=== PATIENT | female | born 1970 | race American Indian/Alaskan Native ===

== ENCOUNTER 2017-09-24 11:17 | Emergency (ER) | payer MEDICAID, OTHER ==
[2017-09-24 11:46] VITALS: BP 154/74
[2017-09-24] MEDS ORDERED: cefTRIAXone 500 MG Vial IM ONE (12:21)
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
[2017-09-24] MEDS ORDERED: Amoxicillin/Clavulanate K 875-125 MG Tab PO ONE (13:01)
[2017-09-24] MEDS ORDERED: Bacitracin Oint 1 GM U/D Packet TOP ONE (13:04)
[2017-09-24] MEDS ORDERED: Diphtheria,Pertussis(Acell),Tetanus Vaccine 0.5 ML SDV IM ONE (13:17)
== END 2017-09-24 13:20 | disposition home or self-care (01) ==
LOC: DL.ED 11:17
DX: S61.251A Open bite of left index finger without damage to nail, initial encounter (principal); F17.210 Nicotine dependence, cigarettes, uncomplicated; Z88.5 Allergy status to narcotic agent; W50.3XXA Accidental bite by another person, initial encounter
CPT/HCPCS: 36415; 73140; 85025; 90471; 96372; 99284; A9270; J0696

== ENCOUNTER 2019-11-04 15:16 | Emergency (ER) | payer OTHER ==
[2019-11-04 15:54] VITALS: BP 113/81; PULSE 113
[2019-11-04] MEDS ORDERED: Sodium Chloride 0.9% 10 ML Syringe FLUSH PRN (16:05)
[2019-11-04] MEDS ORDERED: Iopamidol 612 MG/ML 100 ML Bottle IVPUSH ONE (16:20)
[2019-11-04 16:49] LABS: PTT,PARTIAL THROMBOPLSTIN TIME 34.2 SEC (22.0-34.0)
--- NOTE | 2019-11-04 16:56 | CT ---
EXAMINATION: Abdomen Pelvis w Cont SEX: Female AGE: 48 years Clinical history: 48-year-old hypertensive female smoker with JAUNDICE and RUQ tenderness. Scan technique: Volume acquisition of data from the abdomen and pelvis obtained without oral contrast but during intravenous infusion 100 cc nonionic Isovue contrast (2.5 cc/s via injector) while patient was lying supine on the Siemens multi slice scanner [place], [place]. All data archived in the PACS system for storage, reformatting axial/sagittal/coronal planes and study. Interpretation: Abnormal. 1. Homogeneously dense fatty liver (no intrahepatic mass or abnormal dilatation of the biliary ducts) and extensive ASCITES (peritoneal fluid). Extensive subcutaneous edema (anasarca). 2. Gallbladder is distended and inhomogeneously dense suggesting multiple noncalcified gallstones. Ultrasound recommended. No abnormal gallbladder wall thickening. 3. No abdominal or pelvic mass lesion (midline uterus unremarkable). No mesenteric or retroperitoneal lymphadenopathy. No sign of mechanical bowel obstruction. 4. Stomach, spleen, pancreas, adrenal glands and kidneys unremarkable. No sign of renal cortical mass lesion, nephrolithiasis or obstructive uropathy. Symmetrically distended normal appearing urinary bladder. 6. Normal caliber aortoiliac vessels. Lumbar spine unremarkable. Lung bases clear. CONCLUSION: Diseased liver and ascites. Probable cholelithiasis (ultrasound suggested) without ductal dilatation. No sign of intraperitoneal malignancy.
[2019-11-04] MEDS ORDERED: Pantoprazole 40 MG Vial IVPUSH ONE (17:03)
--- NOTE | 2019-11-04 17:41 | EDM.PDOC ---
Scribed by Elo Cooper 11/04/19 0530 for Michel Renner MD ED HPI GENERAL MEDICAL PROBLEM - General Chief Complaint: General Stated Complaint: FELL-HURT RIBS Time Seen by Provider: 11/04/19 15:35 Source of Information: Reports: Patient, RN, RN Notes Reviewed History Limitations: Reports: No Limitations - History of Present Illness INITIAL COMMENTS - FREE TEXT/NARRATIVE: Patient presents to ER from [facility] for evaluation of anemia, right upper quadrant abdominal and right lower chest pain. Patient has history of chronic alcohol abuse, last drank this morning. She fell 6 days ago with bruising to the right thigh. Clinic provider was concerned about anemia and possible liver injury from the fall. Patient denies nausea, vomiting, hematemesis or coffee ground emesis. She denies bloody stool but is unsure if her stool has been dark or black. Denies fever, chills, cough, shortness of breath or any recent travel. Denies any known exposure or suspected COVID-19 cases. - Related Data Allergies Allergy/AdvReac Type Severity Reaction Status Date / Time ibuprofen Allergy Facial Verified 11/04/19 15:28 Swelling Past Medical History - Past Health History Medical/Surgical History: Denies Medical/Surgical History Social & Family History - Family History Family Medical History: Noncontributory - Tobacco Use Smoking Status *Q: Current Every Day Smoker Years of Tobacco use: 25 Packs/Tins Daily: 0.5 Used Tobacco, but Quit: No Second Hand Smoke Exposure: Yes - Caffeine Use Caffeine Use: Reports: None - Alcohol Use Days Per Week of Alcohol Use: 3 Number of Drinks Per Day: 6 Total Drinks Per Week: 18 - Recreational Drug Use Recreational Drug Use: Yes Recreational Drug Type: Reports: Marijuana/Hashish Recreational Drug Use Frequency: Socially ED ROS GENERAL - Review of Systems Review Of Systems: Comprehensive ROS is negative, except as noted in HPI. ED EXAM, GENERAL - Physical Exam Exam: See Below Exam Limited By: No Limitations General Appearance: Alert, No Apparent Distress, Obese, Other (Chronically ill appearing) Eye Exam: Bilateral Eye: EOMI, PERRL, Other (Scleral icterus) Ears: Normal External Exam Nose: Normal Inspection, No Blood Throat/Mouth: Normal Inspection, Normal Lips, Normal Voice, No Airway Compromise Head: Atraumatic, Normocephalic Neck: Normal Inspection, Supple, Non-Tender, Full Range of Motion Respiratory/Chest: No Respiratory Distress, Lungs Clear, Normal Breath Sounds, No Accessory Muscle Use, Other (Right anterior lower rib/chest wall tenderness) Cardiovascular: Normal Peripheral Pulses, Regular Rate, Rhythm, Tachycardia, Systolic Murmur GI/Abdominal: Normal Bowel Sounds, Soft, No Distention, Tender (RUQ), Hepatomegaly. No: Guarding, Rigid, Rebound (Female) Exam: Deferred Rectal (Female) Exam: Heme + Stool Back Exam: Normal Inspection Extremities: Normal Range of Motion, Non-Tender, Other (B/L lower extremity edema to knees). No: Jim's Sign, Increased Warmth Neurological: Alert, Oriented, CN II-XII Intact, Normal Cognition, No Motor/ Sensory Deficits Psychiatric: Normal Mood, Flat Affect Skin Exam: Warm, Dry, Intact, Ecchymosis (B/L lower extremities, with large resolving contusion to right hip/thigh) Course - Vital Signs Last Recorded V/S: Last Vital Signs Temp 97.9 F 11/04/19 15:53 Pulse 113 H 11/04/19 15:53 Resp 20 11/04/19 15:53 BP 113/81 11/04/19 15:53 Pulse Ox 100 11/04/19 15:53 - Orders/Labs/Meds Orders: Active Orders 24 hr Category Date Time Status Peripheral IV Care [RC] . DIRECTED Care 11/04/19 16:05 Active Sodium Chloride 0.9% [Saline Flush] Med 11/04/19 16:05 Active 10 ml FLUSH ASDIRECTED PRN Peripheral IV Insertion Adult [OM.PC] Stat Oth 11/04/19 16:04 Ordered Medication Orders Sodium Chloride (Saline Flush) 10 ml FLUSH ASDIRECTED PRN PRN Reason: Keep Vein Open Last Admin: 11/04/19 17:12 Dose: 10 ml Labs: Laboratory Tests 11/04/19 11/04/19 11/04/19 Range/Units 16:16 16:16 16:16 PT 14.8 H (9.0-12.0) SEC INR 1.6 H (0.9-1.2) APTT 34.2 H (22.0-34.0) SEC Ammonia 48 H (11-32) umol/L B-Natriuretic Peptide 243 H (0-100) pg/ml Amylase 38 (25-115) U/L Lipase 253 (73-393) U/L Ethyl Alcohol 156 (0) mg/dL Hemoccult stool: POSITIVE LABS FROM [facility]RIAS on 11/04/19. Glucose 110. EST GFR 60. Urea nitrogen 3.8. Creatinine 0.60. Sodium 134.0. Potassium 3.2. Chloride 97.0. C02: 22.8. Calcium 7.8. Protein total 7.7. Albumin 2.3. Total bilirubin 6.70. Direct bilirubin 3.20. Alkaline phosphatase 147. SGOT 102. SGPT 21. Cholesterol 122 Triglyceride 100.0. DHDL 29 LDL 65. WBC: 10.8. RBC: 2.00. Hemoglobin: 7.7. Hematocrit 22.2 MCV 111.2. MCH 38.4. MCHC 34.6. RDW 16.0. Platelet count 86.0. MPV 8.3. ME%, auto 73.2. LY%, auto 16.1. MO%, auto 7.4. EOS% auto 2.4. BASO%, auto 0.9. NE# 7.90. LY# 1.70. MO# 0.80. EO# 0.30. BA# 0.10. [facility] FREE T4 68.0. [facility] TSH: 1.34. [facility] Vitamin B12 greater than 1515. Meds: Medications Generic Name Dose Route Start Last Admin Trade Name Freq PRN Reason Stop Dose Admin Sodium Chloride 10 ml 11/04/19 16:05 11/04/19 17:12 Saline Flush FLUSH 10 ml ASDIRECTED PRN Administration Keep Vein Open Discontinued Medications Generic Name Dose Route Start Last Admin Trade Name Freq PRN Reason Stop Dose Admin Iopamidol 100 ml 11/04/19 16:20 11/04/19 16:42 Isovue-300 (61%) IVPUSH 11/04/19 16:21 100 ml ONETIME ONE Administration Pantoprazole Sodium 80 mg 11/04/19 17:03 11/04/19 17:12 Protonix Iv IVPUSH 11/04/19 17:04 80 mg .BOLUS ONE Administration - Radiology Interpretation Free Text/Narrative:: CT abdomen and pelvis: Diseased liver and ascites. Probable cholelithiasis ( ultrasound suggested) without ductal dilatation. No sign of intraperitoneal malignancy. See rad report. Departure - Departure Time of Disposition: 17:25 Disposition: DC/Tfer to [facility] 02 Reason for Transfer *Q: Other Condition: Undetermined Clinical Impression: Ascites due to alcoholic cirrhosis, Thrombocytopenia, Heme positive stool Referrals: PCP,Unobtain [Primary Care Provider] - Forms: ED Department Discharge, Interfacility Transfer EMTALA Sepsis Event Note - Focused Exam Vital Signs: Vital Signs Temp Pulse Resp BP Pulse Ox 11/04/19 15:53 97.9 F 113 H 20 113/81 100 Date Exam was Performed: 11/04/19 Time Exam was Performed: 17:40 - My Orders Last 24 Hours: My Active Orders 11/04/19 16:04 Peripheral IV Insertion Adult [OM.PC] Stat 11/04/19 16:05 Peripheral IV Care [RC] . DIRECTED Sodium Chloride 0.9% [Saline Flush] 10 ml FLUSH ASDIRECTED PRN - Assessment/Plan Last 24 Hours: My Active Orders 11/04/19 16:04 Peripheral IV Insertion Adult [OM.PC] Stat 11/04/19 16:05 Peripheral IV Care [RC] . DIRECTED Sodium Chloride 0.9% [Saline Flush] 10 ml FLUSH ASDIRECTED PRN I have read and agree with the documentation that has been completed regarding this visit. By signing this record, I attest that the documentation was completed in my physical presence and is an accurate record of the encounter.
== END 2019-11-04 17:53 ==
LOC: DL.ED 15:16
DX: K70.31 Alcoholic cirrhosis of liver with ascites (principal); D69.6 Thrombocytopenia, unspecified; K92.1 Melena; F17.210 Nicotine dependence, cigarettes, uncomplicated
CPT/HCPCS: 36415; 74177; 80307; 82140; 82150; 82272; 83690; 83880; 85610; 85730; 96374; 99285; C9113; Q9967; 99284

== ENCOUNTER 2020-02-05 17:03 | Emergency (ER) | payer MEDICAID, OTHER ==
[2020-02-05 17:14] VITALS: BP 108/45; PULSE 114
[2020-02-05] MEDS: Sodium Chloride 0.9% 10 ML Syringe FLUSH PRN (17:50)
[2020-02-05 18:24] LABS: ANION GAP 18.4 mEq/L (7-13); CHLORIDE,CL 99 mmol/L (98-107); SODIUM,NA 137 mmol/L (136-145)
[2020-02-05] MEDS: MVI, Adult with Vitamin K 10 ML, Folic Acid 1 MG, Thiamine 100 MG in Lactated Ringers 1... IV ONE ×4 (18:24)
[2020-02-05 18:26] LABS: PTT,PARTIAL THROMBOPLSTIN TIME 32.4 SEC (22.0-34.0)
[2020-02-05] MEDS: Ondansetron 4 MG/2 ML SDV IV ONE (18:26)
[2020-02-05] MEDS: Pantoprazole 40 MG Vial IVPUSH ONE (18:30)
--- NOTE | 2020-02-05 18:33 | EDM.PDOC ---
Scribed by Elo Cooper 02/05/20 [id number] for Michel Renner MD ED HPI GENERAL MEDICAL PROBLEM - General Chief Complaint: Gastrointestinal Problem Stated Complaint: HIGH BLOOD PRESSURE, OVER CHECK UP PER PT Time Seen by Provider: 02/05/20 17:21 Source of Information: Reports: Patient, RN, RN Notes Reviewed History Limitations: Reports: No Limitations - History of Present Illness INITIAL COMMENTS - FREE TEXT/NARRATIVE: Patient is a 49-year-old female who presents to ED by POV stating she has noticed black stools since last evening. Vomited red blood and clots around 0300HRS this morning. States she has cirrhosis and maybe colon CA but has not had a colonoscopy yet for this. Has had to have blood transfusions in the past. Hx of GI bleeds. States she takes 7 meds but does not know names but she does not have them with her and unable to verify due to pharmacy closed. Has not taken meds for past 2 or 3 days due to being out but states took them today. Adm it to drinking alcohol yesterday. Onset: Gradual Duration: Day(s): (2), Getting Worse, Recurring Location: Reports: Abdomen Quality: Reports: Ache Severity: Moderate Improves with: Reports: None Worsens with: Reports: None Associated Symptoms: Reports: No Other Symptoms - Related Data Allergies Allergy/AdvReac Type Severity Reaction Status Date / Time ibuprofen Allergy Facial Verified 11/04/19 15:28 Swelling Home Meds: Home Meds . [Unable to Verify Home Med List] 02/05/20 [History] Past Medical History - Past Health History Medical/Surgical History: Denies Medical/Surgical History HEENT History: Reports: Impaired Vision Cardiovascular History: Reports: Hypertension Respiratory History: Reports: None Gastrointestinal History: Reports: Cirrhosis, GI Bleed, Jaundice Genitourinary History: Reports: None Neurological History: Reports: None Psychiatric History: Reports: Addiction Endocrine/Metabolic History: Reports: Other (See Below) Other Endocrine/Metabolic History: pre diabetic Hematologic History: Reports: Anemia Dermatologic History: Reports: None - Infectious Disease History Infectious Disease History: Reports: MRSA - Past Surgical History Head Surgeries/Procedures: Reports: None Social & Family History - Family History Family Medical History: Noncontributory - Caffeine Use Caffeine Use: Reports: None - Alcohol Use Alcohol Use History: Yes Date of Last Drink: 02/04/20 Alcohol Use Frequency: Binges - Living Situation & Occupation Living situation: Reports: Occupation: Unemployed ED ROS GENERAL - Review of Systems Review Of Systems: Comprehensive ROS is negative, except as noted in HPI. ED EXAM, GI/ABD - Physical Exam Exam: See Below Exam Limited By: No Limitations General Appearance: Alert, No Apparent Distress, Active Emesis (Dry heaving.), Other (Chronically ill appearing) Eyes: Bilateral: EOMI (Scleral icterus) Nose: Normal Inspection, Normal Mucosa, No Blood Throat/Mouth: Normal Lips, Normal Oropharynx, Normal Voice, No Airway Compromise Head: Atraumatic, Normocephalic Neck: Normal Inspection, Supple, Non-Tender, Full Range of Motion Respiratory/Chest: No Respiratory Distress, Lungs Clear, Normal Breath Sounds, No Accessory Muscle Use, Chest Non-Tender Cardiovascular: Regular Rate, Rhythm, Tachycardia, Other (+1 edema to B/L knees, chronic appearing venous stasis) GI/Abdominal Exam: Normal Bowel Sounds, Soft, Non-Tender, No Distention, Pelvis Stable, Hepatomegaly. No: Guarding, Rigid, Rebound (Female) Exam: Deferred Rectal (Female) Exam: Black Stool, Heme + Stool Back Exam: Normal Inspection Extremities: Normal Range of Motion, Non-Tender, Normal Capillary Refill Neurological: Alert, Oriented, CN II-XII Intact, Normal Cognition, No Motor/Sensory Deficits Psychiatric: Normal Affect, Normal Mood Skin Exam: Warm, Dry, Intact, Jaundice. No: Ecchymosis, Petechiae EKG INTERPRETATION EKG Date: 02/05/20 Time: 18:03 Rhythm: Other (sinus tachycardia) Rate (Beats/Min): 102 [place]: Normal P-Wave: Present QRS: Normal ST-T: Other (borderline T abnormalities.) QT: Prolonged Course - Vital Signs Last Recorded V/S: Last Vital Signs Temp 96.5 F L 02/05/20 17:12 Pulse 114 H 02/05/20 17:12 Resp 18 02/05/20 17:12 BP 108/45 L 02/05/20 17:12 Pulse Ox 100 02/05/20 17:12 - Orders/Labs/Meds Orders: Active Orders 24 hr Category Date Time Status EKG 12 Lead [EKG Documentation Completion] [RC] STAT Care 02/05/20 17:57 Active Peripheral IV Care [RC] . DIRECTED Care 02/05/20 17:22 Active Hemoccult, Stool [OCCULT BLOOD DIAGNOSTIC] [OP] Stat Lab 02/05/20 17:22 Ordered INR,PT,PROTHROMBIN TIME [COAG] Stat Lab 02/05/20 17:53 Received PTT,PARTIAL THROMBOPLSTIN TIME [COAG] Stat Lab 02/05/20 17:53 Received TYPE AND SCREEN [BBK] Stat Lab 02/05/20 17:53 Received MVI, Adult with Vitamin K [Infuvite Adult] 10 ml Med 02/05/20 17:30 Active Folic Acid 1 mg Thiamine [Vitamin B-1] 100 mg Lactated Ringers [Ringers, Lactated] 1,000 ml IV ONETIME Octreotide [SandoSTATIN] 100 mcg Med 02/05/20 17:45 Active Sodium Chloride 0.9% [Normal Saline] 99 ml IV Q10H Pantoprazole [ProTONIX IV] 40 mg Med 02/05/20 17:45 Active Sodium Chloride 0.9% [Normal Saline] 100 ml IV .CONTINUOS Sodium Chloride 0.9% [Saline Flush] Med 02/05/20 17:22 Active 10 ml FLUSH ASDIRECTED PRN Blood Transfusion Reflex Orders [OM.PC] ONETIME Oth 02/05/20 18:14 Ordered Peripheral IV Insertion Adult [OM.PC] Stat Oth 02/05/20 17:21 Ordered Medication Orders Multivitamins/Minerals 10 ml/Folic Acid 1 mg/ Thiamine HCl 100 mg/ Lactated Ringer's 1,011.2 mls @ 999 mls/hr IV ONETIME ONE Stop: 02/05/20 18:30 Last Admin: 02/05/20 18:24 Dose: 999 mls/hr Documented by: EPHRAIM Pantoprazole Sodium 40 mg/ (Sodium Chloride) 100 mls @ 20 mls/hr IV .CONTINUOS JACK Octreotide Acetate 100 mcg/ (Sodium Chloride) 100 mls @ 50 mls/hr IV Q10H JACK Sodium Chloride (Saline Flush) 10 ml FLUSH ASDIRECTED PRN PRN Reason: Keep Vein Open Labs: Laboratory Tests 02/05/20 02/05/20 02/05/20 Range/Units 17:34 17:34 17:53 WBC 6.2 (5.0-10.0) 10^3/uL RBC 2.31 L (4.2-5.4) 10^6/uL Hgb 7.4 L D (12.0-16.0) g/dL Hct 22.2 L (37.0-47.0) % MCV 96.1 D (80-100) fL MCH 32.0 (27.0-34.0) pg MCHC 33.3 (33.0-35.0) g/dL Plt Count 43 L* D (150-450) 10^3/uL Neut % (Auto) 67.5 (42.2-75.2) % Lymph % (Auto) 17.0 L (20.5-50.1) % [place] % (Auto) 12.2 H (2-8) % Eos % (Auto) 0.5 L (1.0-3.0) % Baso % (Auto) 2.8 H (0.0-1.0) % Sodium (136-145) mmol/L Potassium (3.5-5.1) mmol/L Chloride (98-107) mmol/L Carbon Dioxide (21-32) mmol/L Anion Gap (7-13) mEq/L BUN (7-18) mg/dL Creatinine (0.55-1.02) mg/dL Est Cr Clr Drug Dosing mL/min Estimated GFR (MDRD) BUN/Creatinine Ratio (No establ ref range) Glucose (74-99) mg/dL Calcium (8.5-10.1) mg/dL Total Bilirubin (0.2-1.0) mg/dL AST (15-37) U/L ALT (14-59) U/L Alkaline Phosphatase (46-116) U/L Ammonia (11-32) umol/L Lactate Dehydrogenase (81-234) U/L Troponin I (0.000-0.056) ng/mL Total Protein (6.4-8.2) g/dL Albumin (3.4-5.0) g/dL Globulin Albumin/Globulin Ratio Amylase (25-115) U/L Lipase (73-393) U/L Urine Color Yellow (YELLOW) Urine Appearance Slightly cloudy (CLEAR) Urine pH 5.5 (5.0-9.0) Ur Specific [place] 1.015 (1.005-1.030) Urine Protein Negative (NEGATIVE) Urine Glucose (UA) Negative (NEGATIVE) Urine Ketones Negative (NEGATIVE) Urine Occult Blood Small H (NEGATIVE) Urine Nitrite Negative (NEGATIVE) Urine Bilirubin Negative (NEGATIVE) Urine Urobilinogen 0.2 (0.2-1.0) mg/dL Ur Leukocyte Esterase Negative (NEGATIVE) Urine RBC 5-10 H /HPF Urine WBC 0-5 (0-5/HPF) /HPF Ur Epithelial Cells Rare (NOT SEEN) /HPF Urine Bacteria Rare (0-FEW/HPF) /HPF Urine Mucus Rare (NOT SEEN) /LPF Urine Opiates Screen Negative (NEGATIVE) Ur Oxycodone Screen Negative (NEGATIVE) Urine Methadone Screen Negative (NEGATIVE) Ur Barbiturates Screen Negative (NEGATIVE) U Tricyclic Antidepress Negative (NEGATIVE) Ur Phencyclidine Scrn Negative (NEGATIVE) Ur Amphetamine Screen Negative (NEGATIVE) U Methamphetamines Scrn Negative (NEGATIVE) Urine MDMA Screen Negative (NEGATIVE) U Benzodiazepines Scrn Negative (NEGATIVE) Urine Cocaine Screen Negative (NEGATIVE) U Marijuana (THC) Screen Negative (NEGATIVE) Ethyl Alcohol (0) mg/dL 02/05/20 02/05/20 Range/Units 17:53 17:53 WBC (5.0-10.0) 10^3/uL RBC (4.2-5.4) 10^6/uL Hgb (12.0-16.0) g/dL Hct (37.0-47.0) % MCV (80-100) fL MCH (27.0-34.0) pg MCHC (33.0-35.0) g/dL Plt Count (150-450) 10^3/uL Neut % (Auto) (42.2-75.2) % Lymph % (Auto) (20.5-50.1) % [place] % (Auto) (2-8) % Eos % (Auto) (1.0-3.0) % Baso % (Auto) (0.0-1.0) % Sodium 137 (136-145) mmol/L Potassium 3.4 L (3.5-5.1) mmol/L Chloride 99 (98-107) mmol/L Carbon Dioxide 23 (21-32) mmol/L Anion Gap 18.4 H (7-13) mEq/L BUN 27 H (7-18) mg/dL Creatinine 0.97 (0.55-1.02) mg/dL Est Cr Clr Drug Dosing 68.22 mL/min Estimated GFR (MDRD) > 60 BUN/Creatinine Ratio 27.8 (No establ ref range) Glucose 102 H (74-99) mg/dL Calcium 8.7 (8.5-10.1) mg/dL Total Bilirubin 2.8 H (0.2-1.0) mg/dL AST 78 H (15-37) U/L ALT 23 (14-59) U/L Alkaline Phosphatase 111 (46-116) U/L Ammonia < 10 L (11-32) umol/L Lactate Dehydrogenase 264 H (81-234) U/L Troponin I 0.017 (0.000-0.056) ng/mL Total Protein 8.3 H (6.4-8.2) g/dL Albumin 2.6 L (3.4-5.0) g/dL Globulin 5.7 Albumin/Globulin Ratio 0.46 Amylase 49 (25-115) U/L Lipase 190 (73-393) U/L Urine Color (YELLOW) Urine Appearance (CLEAR) Urine pH (5.0-9.0) Ur Specific [place] (1.005-1.030) Urine Protein (NEGATIVE) Urine Glucose (UA) (NEGATIVE) Urine Ketones (NEGATIVE) Urine Occult Blood (NEGATIVE) Urine Nitrite (NEGATIVE) Urine Bilirubin (NEGATIVE) Urine Urobilinogen (0.2-1.0) mg/dL Ur Leukocyte Esterase (NEGATIVE) Urine RBC /HPF Urine WBC (0-5/HPF) /HPF Ur Epithelial Cells (NOT SEEN) /HPF Urine Bacteria (0-FEW/HPF) /HPF Urine Mucus (NOT SEEN) /LPF Urine Opiates Screen (NEGATIVE) Ur Oxycodone Screen (NEGATIVE) Urine Methadone Screen (NEGATIVE) Ur Barbiturates Screen (NEGATIVE) U Tricyclic Antidepress (NEGATIVE) Ur Phencyclidine Scrn (NEGATIVE) Ur Amphetamine Screen (NEGATIVE) U Methamphetamines Scrn (NEGATIVE) Urine MDMA Screen (NEGATIVE) U Benzodiazepines Scrn (NEGATIVE) Urine Cocaine Screen (NEGATIVE) U Marijuana (THC) Screen (NEGATIVE) Ethyl Alcohol 132 (0) mg/dL Meds: Medications Generic Name Dose Route Start Last Admin Trade Name Freq PRN Reason Stop Dose Admin Multivitamins/Minerals 10 ml/ 1,011.2 mls @ 999 mls/hr 02/05/20 17:30 02/05/20 18:24 Folic Acid 1 mg/ Thiamine HCl IV 02/05/20 18:30 999 mls/hr 100 mg/ Lactated Ringer's ONETIME ONE Administration Pantoprazole Sodium 40 mg/ 100 mls @ 20 mls/hr 02/05/20 17:45 Sodium Chloride IV .CONTINUOS JACK Octreotide Acetate 100 mcg/ 100 mls @ 50 mls/hr 02/05/20 17:45 Sodium Chloride IV Q10H JACK Sodium Chloride 10 ml 02/05/20 17:22 Saline Flush FLUSH ASDIRECTED PRN Keep Vein Open Discontinued Medications Generic Name Dose Route Start Last Admin Trade Name Freq PRN Reason Stop Dose Admin Sterile Water Confirm 02/05/20 18:21 Sterile Water For Injection Administered 02/05/20 18:22 Dose 20 mls @ as directed .ROUTE .STK-MED ONE Octreotide Acetate 50 mcg 02/05/20 17:30 Sandostatin IVPUSH 02/05/20 17:31 ONETIME ONE Ondansetron HCl 4 mg 02/05/20 17:29 Zofran IV 02/05/20 17:30 ONETIME ONE Pantoprazole Sodium 80 mg 02/05/20 17:30 Protonix Iv IVPUSH 02/05/20 17:31 .BOLUS ONE Departure - Departure Time of Disposition: 18:29 Disposition: DC/Tfer to [facility] 02 Condition: Serious Clinical Impression: Upper gastrointestinal bleed, Chronic alcohol abuse Alcoholic cirrhosis of liver Qualifiers: Ascites presence: unspecified Qualified Code(s): K70.30 - Alcoholic cirrhosis of liver without ascites Anemia Qualifiers: Anemia type: unspecified type Qualified Code(s): D64.9 - Anemia, unspecified - Discharge Information *PRESCRIPTION DRUG MONITORING PROGRAM REVIEWED*: Not Applicable *COPY OF PRESCRIPTION DRUG MONITORING REPORT IN PATIENT ELIEZER: Not Applicable Forms: ED Department Discharge, Interfacility Transfer EMTALA Sepsis Event Note (ED) - Evaluation Sepsis Screening Result: No Definite Risk - Focused Exam Vital Signs: Vital Signs Temp Pulse Resp BP Pulse Ox 02/05/20 17:12 96.5 F L 114 H 18 108/45 L 100 - My Orders Last 24 Hours: My Active Orders 02/05/20 17:21 Peripheral IV Insertion Adult [OM.PC] Stat 02/05/20 17:22 Peripheral IV Care [RC] . DIRECTED Hemoccult, Stool [OCCULT BLOOD DIAGNOSTIC] [OP] Stat Sodium Chloride 0.9% [Saline Flush] 10 ml FLUSH ASDIRECTED PRN 02/05/20 17:30 MVI, Adult with Vitamin K [Infuvite Adult] 10 ml Folic Acid 1 mg Thiamine [Vitamin B-1] 100 mg Lactated Ringers [Ringers, Lactated] 1,000 ml IV ONETIME 02/05/20 17:45 Octreotide [SandoSTATIN] 100 mcg Sodium Chloride 0.9% [Normal Saline] 99 ml IV Q10H Pantoprazole [ProTONIX IV] 40 mg Sodium Chloride 0.9% [Normal Saline] 100 ml IV .CONTINUOS 02/05/20 17:53 INR,PT,PROTHROMBIN TIME [COAG] Stat PTT,PARTIAL THROMBOPLSTIN TIME [COAG] Stat TYPE AND SCREEN [BBK] Stat 02/05/20 17:57 EKG 12 Lead [EKG Documentation Completion] [RC] STAT 02/05/20 18:14 Blood Transfusion Reflex Orders [OM.PC] ONETIME - Assessment/Plan Last 24 Hours: My Active Orders 02/05/20 17:21 Peripheral IV Insertion Adult [OM.PC] Stat 02/05/20 17:22 Peripheral IV Care [RC] . DIRECTED Hemoccult, Stool [OCCULT BLOOD DIAGNOSTIC] [OP] Stat Sodium Chloride 0.9% [Saline Flush] 10 ml FLUSH ASDIRECTED PRN 02/05/20 17:30 MVI, Adult with Vitamin K [Infuvite Adult] 10 ml Folic Acid 1 mg Thiamine [V itamin B-1] 100 mg Lactated Ringers [Ringers, Lactated] 1,000 ml IV ONETIME 02/05/20 17:45 Octreotide [SandoSTATIN] 100 mcg Sodium Chloride 0.9% [Normal Saline] 99 ml IV Q10H Pantoprazole [ProTONIX IV] 40 mg Sodium Chloride 0.9% [Normal Saline] 100 ml IV .CONTINUOS 02/05/20 17:53 INR,PT,PROTHROMBIN TIME [COAG] Stat PTT,PARTIAL THROMBOPLSTIN TIME [COAG] Stat TYPE AND SCREEN [BBK] Stat 02/05/20 17:57 EKG 12 Lead [EKG Documentation Completion] [RC] STAT 02/05/20 18:14 Blood Transfusion Reflex Orders [OM.PC] ONETIME I have read and agree with the documentation that has been completed regarding this visit. By signing this record, I attest that the documentation was completed in my physical presence and is an accurate record of the encounter.
[2020-02-05] MEDS: Octreotide 100 MCG/ML SDV IVPUSH ONE (18:39)
[2020-02-05] MEDS: Octreotide 100 MCG in Sodium Chloride 0.9% 99 ML IV SCH (18:43)
[2020-02-05] MEDS: Water For Injection, Sterile 20 ML ONE (18:44)
[2020-02-05] MEDS: Pantoprazole 40 MG in Sodium Chloride 0.9% 100 ML IV SCH (19:13)
== END 2020-02-05 19:37 ==
LOC: DL.ED 17:03
DX: K92.2 Gastrointestinal hemorrhage, unspecified (principal); K70.30 Alcoholic cirrhosis of liver without ascites; D64.9 Anemia, unspecified; F10.10 Alcohol abuse, uncomplicated; Y90.6 Blood alcohol level of 120-199 mg/100 ml; I10 Essential (primary) hypertension; R00.0 Tachycardia, unspecified; Z88.6 Allergy status to analgesic agent
CPT/HCPCS: 36415; 80053; 80305; 80307; 81001; 82140; 82150; 82272; 83615; 83690; 84484; 85025; 85610; 85730; 86850; 86900; 86901; 93005; 96365; 96367; 96368; 96375; 96376; 99285; C9113; J2354; J2405; J3411; J7050; J7120; J3490

== ENCOUNTER 2020-04-07 11:48 | Emergency (ER) | payer MEDICAID, OTHER ==
[2020-04-07 12:23] VITALS: BP 122/71; PULSE 95
--- NOTE | 2020-04-07 12:32 | EDM.PDOC ---
ED HPI GENERAL MEDICAL PROBLEM - General Chief Complaint: Laceration Stated Complaint: [id number] CUT ON LEFT LEG WONT STOP BLEEDING Time Seen by Provider: 04/07/20 12:25 Source of Information: Reports: Patient, Old Records, RN, RN Notes Reviewed History Limitations: Reports: No Limitations - History of Present Illness INITIAL COMMENTS - FREE TEXT/NARRATIVE: Pt presents to ER with c/o a cut to the left lower leg that occurred yesterday when she stepped in a hole in her yard. Pt presents to the ER now because the cut keeps bleeding. Pt has Hx of alcoholic cirrhosis of the liver with abnormal clotting, and that is why she thinks the bleeding won't stop. She continues to drink beer every few days, having quit hard alcohol due to the liver disease. Pt denies any injury other than the left leg laceration. She states her Tetanus vaccine was updated 2 years ago. Onset: Sudden Onset Date: 04/06/20 Duration: Constant Location: Reports: Lower Extremity, Left Quality: Reports: Ache Severity: Mild Improves with: Reports: None Worsens with: Reports: None Associated Symptoms: Reports: No Other Symptoms Left Lower Leg Pain Score (Numeric/FACES): 9 - Related Data Allergies Allergy/AdvReac Type Severity Reaction Status Date / Time ibuprofen Allergy Facial Verified 11/04/19 15:28 Swelling Home Meds: Home Meds . [Unable to Verify Home Med List] 02/05/20 [History] Past Medical History - Past Health History Medical/Surgical History: Denies Medical/Surgical History HEENT History: Reports: Impaired Vision Cardiovascular History: Reports: Hypertension Respiratory History: Reports: None Gastrointestinal History: Reports: Cirrhosis, GI Bleed, Jaundice Genitourinary History: Reports: None Neurological History: Reports: None Psychiatric History: Reports: Addiction Endocrine/Metabolic History: Reports: Other (See Below) Other Endocrine/Metabolic History: pre diabetic Hematologic History: Reports: Anemia Oncologic (Cancer) History: Reports: Other (See Below) Other Oncologic History: States she is suppose to have a colonoscopy to R/O colon cancer but postponed till 2019 Dermatologic History: Reports: None - Infectious Disease History Infectious Disease History: Reports: MRSA - Past Surgical History Head Surgeries/Procedures: Reports: None Social & Family History - Family History Family Medical History: Noncontributory - Caffeine Use Caffeine Use: Reports: None - Alcohol Use Alcohol Use History: Yes Days Per Week of Alcohol Use: 4 Number of Drinks Per Day Comment: Hx of heavy chronic alcohol abuse Alcohol Use Frequency: Weekly (Heavy) - Living Situation & Occupation Living situation: Reports: Occupation: Unemployed ED ROS GENERAL - Review of Systems Review Of Systems: Comprehensive ROS is negative, except as noted in HPI. ED EXAM, SKIN/RASH Exam: See Below Exam Limited By: No Limitations General Appearance: Alert, No Apparent Distress, Other (Chronically ill appearing) Eye Exam: Bilateral Eye: EOMI (Scleral icterus) Head: Atraumatic, Normocephalic Respiratory/Chest: No Respiratory Distress Cardiovascular: Normal Peripheral Pulses Extremities: Normal Range of Motion, No Pedal Edema, Normal Capillary Refill, Other (2.5cm linear flap laceration to left anterior lower leg with constant oozing of blood, no swelling, no FB. The laceration is to the depth of subcutaneous tissue, but is fairly superficial. ) Neurological: Alert, Oriented, CN II-XII Intact, Normal Cognition, No Motor/Sensory Deficits Psychiatric: Normal Mood Skin: Warm, Dry Course - Vital Signs Last Recorded V/S: Last Vital Signs Temp 97.5 F 04/07/20 12:22 Pulse 95 04/07/20 12:22 Resp 20 04/07/20 12:22 BP 122/71 04/07/20 12:22 Pulse Ox 99 04/07/20 12:22 - Orders/Labs/Meds Meds: Medications Discontinued Medications Generic Name Dose Route Start Last Admin Trade Name Freq PRN Reason Stop Dose Admin Tranexamic Acid 500 mg 04/07/20 12:25 04/07/20 12:35 Cyklokapron TOP 04/07/20 12:26 500 mg ONETIME ONE Administration - Re-Assessments/Exams Free Text/Narrative Re-Assessment/Exam: 04/07/20 12:35 No procedural wound care by physician. Wound >24 hours old at time of presentation. Departure - Departure Time of Disposition: 13:43 Disposition: Home, Self-Care 01 Condition: Good Clinical Impression: Laceration of skin with delay in treatment Laceration of left lower leg Qualifiers: Encounter type: initial encounter Qualified Code(s): S81.812A - Laceration without foreign body, left lower leg, initial encounter - Discharge Information *PRESCRIPTION DRUG MONITORING PROGRAM REVIEWED*: Not Applicable *COPY OF PRESCRIPTION DRUG MONITORING REPORT IN PATIENT ELIEZER: Not Applicable Instructions: Nonsutured Laceration Care Forms: ED Department Discharge Additional Instructions: Rest and elevate left leg. Do not remove dressing until tomorrow evening. Follow up in clinic or ER if any further problems. Sepsis Event Note (ED) - Evaluation Sepsis Screening Result: No Definite Risk - Focused Exam Vital Signs: Vital Signs Temp Pulse Resp BP Pulse Ox 04/07/20 12:22 97.5 F 95 20 122/71 99
== END 2020-04-07 13:48 | disposition home or self-care (01) ==
LOC: DL.ED 11:48
DX: S81.812A Laceration without foreign body, left lower leg, initial encounter (principal); I10 Essential (primary) hypertension; Z88.6 Allergy status to analgesic agent; W22.8XXA Striking against or struck by other objects, initial encounter; Y92.096 Garden or yard of other non-institutional residence as the place of occurrence of the external cause
CPT/HCPCS: 99282

== ENCOUNTER 2020-04-27 12:16 | Emergency (ER) | payer MEDICAID, OTHER ==
--- NOTE | 2020-04-27 12:42 | EDM.PDOC ---
ED HPI GENERAL MEDICAL PROBLEM - General Chief Complaint: General Stated Complaint: INCOMING Time Seen by Provider: 04/27/20 12:41 Source of Information: Reports: Patient, RN, RN Notes Reviewed History Limitations: Reports: No Limitations - History of Present Illness INITIAL COMMENTS - FREE TEXT/NARRATIVE: Patient presents to ER per [place] ambulance service from [facility] with complaint of nosebleed. Patient presented to the [facility] clinic this morning stating she had had a nosebleed that began last evening, and trickled through the night. Labs were done at [facility] finding hemoglobin to be 6.7. Afrin was used for the nosebleed at the clinic, and did help. Patient is not actively bleeding from the nose upon arrival to the ER. Patient known abuser of alcohol, cirrhosis of the liver. Patient states she did have a stool that was black yesterday, would have been prior to the beginning of the nosebleed. Patient states some nausea and vomiting today, bright red blood/brown. Onset: Sudden - Related Data Allergies Allergy/AdvReac Type Severity Reaction Status Date / Time ibuprofen Allergy Facial Verified 04/27/20 12:33 Swelling Home Meds: Home Meds Ferrous Gluconate 324 mg PO DAILY 04/27/20 [History] Folic Acid 1 mg PO DAILY 04/27/20 [History] Furosemide 40 mg PO DAILY 04/27/20 [History] Multivitamin [Multi-Vitamin Daily] 1 each PO DAILY 04/27/20 [History] Spironolactone [Aldactone] 100 mg PO BID 04/27/20 [History] Thiamine [Vitamin B-1] 100 mg PO DAILY 04/27/20 [History] metFORMIN HCl [Metformin HCl] 500 mg PO BID 04/27/20 [History] Past Medical History - Past Health History Medical/Surgical History: Denies Medical/Surgical History HEENT History: Reports: Impaired Vision Cardiovascular History: Reports: Hypertension Respiratory History: Reports: None Gastrointestinal History: Reports: Cirrhosis, GI Bleed, Jaundice Genitourinary History: Reports: None Neurological History: Reports: None Psychiatric History: Reports: Addiction Endocrine/Metabolic History: Reports: Other (See Below) Other Endocrine/Metabolic History: pre diabetic Hematologic History: Reports: Anemia Oncologic (Cancer) History: Reports: Other (See Below) Other Oncologic History: States she is suppose to have a colonoscopy to R/O colon cancer but postponed till 2019 Dermatologic History: Reports: None - Infectious Disease History Infectious Disease History: Reports: MRSA - Past Surgical History Head Surgeries/Procedures: Reports: None Social & Family History - Family History Family Medical History: Noncontributory - Tobacco Use Smoking Status *Q: Light Tobacco Smoker Years of Tobacco use: 30 Packs/Tins Daily: 0.5 Second Hand Smoke Exposure: Yes - Caffeine Use Caffeine Use: Reports: None - Recreational Drug Use Recreational Drug Use: No - Living Situation & Occupation Living situation: Reports: Occupation: Unemployed ED ROS GENERAL - Review of Systems Review Of Systems: Comprehensive ROS is negative, except as noted in HPI. ED EXAM, GENERAL - Physical Exam Exam: See Below Exam Limited By: No Limitations General Appearance: Alert, WD/WN, No Apparent Distress Eye Exam: Bilateral Eye: EOMI, Normal Inspection Ears: Normal External Exam, Hearing Grossly Normal Nose: Normal Inspection Throat/Mouth: Normal Inspection, Normal Voice, No Airway Compromise Head: Atraumatic, Normocephalic Neck: Normal Inspection, Supple, Non-Tender, Full Range of Motion Respiratory/Chest: No Respiratory Distress, No Accessory Muscle Use, Chest Non- Tender, Pleural Rub (Left) Cardiovascular: Normal Peripheral Pulses, Regular Rate, Rhythm, No Edema, No Gallop, No JVD, No Murmur, No Rub Peripheral Pulses: 2+: Radial (L), Radial (R) GI/Abdominal: Normal Bowel Sounds, Soft, Non-Tender (Female) Exam: Deferred Rectal (Female) Exam: Black Stool, Heme + Stool Back Exam: Normal Inspection, Full Range of Motion, NT Extremities: Normal Inspection, Normal Range of Motion, Non-Tender, Normal C apillary Refill, No Pedal Edema Neurological: Alert, Oriented, CN II-XII Intact, Normal Cognition, Normal Gait, Normal Reflexes, No Motor/Sensory Deficits Psychiatric: Normal Affect, Normal Mood Skin Exam: Warm, Dry, Intact, Normal Color, No Rash Lymphatic: No Adenopathy Course - Vital Signs Last Recorded V/S: Last Vital Signs Temp 98.9 F 04/27/20 14:57 Pulse 115 H 04/27/20 14:57 Resp 20 04/27/20 14:57 BP 120/65 04/27/20 14:57 Pulse Ox 100 04/27/20 14:57 - Orders/Labs/Meds Orders: Active Orders 24 hr Category Date Time Status EKG Documentation Completion [RC] STAT Care 04/27/20 11:54 Active Verify Patient Consent Obtain [RC] ASDIRECTED Care 04/27/20 13:53 Active Transfuse RBC [Transfuse Red Blood Cells] [COMM] Stat Oth 04/27/20 11:54 Ord ered Labs: Laboratory Tests 04/27/20 04/27/20 04/27/20 Range/Units 12:11 12:11 12:23 WBC 5.9 (5.0-10.0) 10^3/uL RBC 2.39 L (4.2-5.4) 10^6/uL Hgb 6.7 L* (12.0-16.0) g/dL Hct 20.4 L* (37.0-47.0) % MCV 85.4 D (80-100) fL MCH 28.0 (27.0-34.0) pg MCHC 32.8 L (33.0-35.0) g/dL Plt Count 27 L* (150-450) 10^3/uL Neut % (Auto) 77.7 H (42.2-75.2) % Lymph % (Auto) 10.7 L (20.5-50.1) % [place] % (Auto) 10.7 H (2-8) % Eos % (Auto) 0.2 L (1.0-3.0) % Baso % (Auto) 0.7 (0.0-1.0) % PT (9.0-12.0) SEC INR (0.9-1.2) Sodium (136-145) mmol/L Potassium (3.5-5.1) mmol/L Chloride (98-107) mmol/L Carbon Dioxide (21-32) mmol/L Anion Gap (7-13) mEq/L BUN (7-18) mg/dL Creatinine (0.55-1.02) mg/dL Est Cr Clr Drug Dosing mL/min Estimated GFR (MDRD) BUN/Creatinine Ratio (No establ ref range) Glucose (74-99) mg/dL Calcium (8.5-10.1) mg/dL Total Bilirubin (0.2-1.0) mg/dL AST (15-37) U/L ALT (14-59) U/L Alkaline Phosphatase (46-116) U/L Ammonia (11-32) umol/L Troponin I (0.000-0.056) ng/mL Total Protein (6.4-8.2) g/dL Albumin (3.4-5.0) g/dL Globulin Albumin/Globulin Ratio Urine Color Dark yellow (YELLOW) Urine Appearance Slightly cloudy (CLEAR) Urine pH 5.5 (5.0-9.0) Ur Specific [place] 1.020 (1.005-1.030) Urine Protein Trace H (NEGATIVE) Urine Glucose (UA) Negative (NEGATIVE) Urine Ketones Trace H (NEGATIVE) Urine Occult Blood Large H (NEGATIVE) Urine Nitrite Negative (NEGATIVE) Urine Bilirubin Small H (NEGATIVE) Urine Urobilinogen 1.0 (0.2-1.0) mg/dL Ur Leukocyte Esterase Negative (NEGATIVE) U Hyaline Cast (Auto) Few Urine RBC 5-10 H /HPF Urine WBC 0-5 (0-5/HPF) /HPF Ur Epithelial Cells Few (NOT SEEN) /HPF Urine Bacteria Few (0-FEW/HPF) /HPF Urine Opiates Screen Negative (NEGATIVE) Ur Oxycodone Screen Negative (NEGATIVE) Urine Methadone Screen Negative (NEGATIVE) Ur Barbiturates Screen Negative (NEGATIVE) U Tricyclic Antidepress Negative (NEGATIVE) Ur Phencyclidine Scrn Negative (NEGATIVE) Ur Amphetamine Screen Negative (NEGATIVE) U Methamphetamines Scrn Negative (NEGATIVE) Urine MDMA Screen Negative (NEGATIVE) U Benzodiazepines Scrn Negative (NEGATIVE) Urine Cocaine Screen Negative (NEGATIVE) U Marijuana (THC) Screen Positive H (NEGATIVE) Ethyl Alcohol (0) mg/dL Blood Type Gel Antibody Screen Crossmatch 04/27/20 04/27/20 04/27/20 Range/Units 12:23 12:23 12:23 WBC (5.0-10.0) 10^3/uL RBC (4.2-5.4) 10^6/uL Hgb (12.0-16.0) g/dL Hct (37.0-47.0) % MCV (80-100) fL MCH (27.0-34.0) pg MCHC (33.0-35.0) g/dL Plt Count (150-450) 10^3/uL Neut % (Auto) (42.2-75.2) % Lymph % (Auto) (20.5-50.1) % [place] % (Auto) (2-8) % Eos % (Auto) (1.0-3.0) % Baso % (Auto) (0.0-1.0) % PT 14.7 H (9.0-12.0) SEC INR 1.6 H (0.9-1.2) Sodium 136 (136-145) mmol/L Potassium 3.8 (3.5-5.1) mmol/L Chloride 101 (98-107) mmol/L Carbon Dioxide 22 (21-32) mmol/L Anion Gap 16.8 H (7-13) mEq/L BUN 17 (7-18) mg/dL Creatinine 0.99 (0.55-1.02) mg/dL Est Cr Clr Drug Dosing 66.84 mL/min Estimated GFR (MDRD) 60 BUN/Creatinine Ratio 17.2 (No establ ref range) Glucose 120 H (74-99) mg/dL Calcium 7.9 L (8.5-10.1) mg/dL Total Bilirubin 2.5 H (0.2-1.0) mg/dL AST 93 H (15-37) U/L ALT 24 (14-59) U/L Alkaline Phosphatase 157 H (46-116) U/L Ammonia 29 (11-32) umol/L Troponin I < 0.017 (0.000-0.056) ng/mL Total Protein 8.2 (6.4-8.2) g/dL Albumin 2.6 L (3.4-5.0) g/dL Globulin 5.6 Albumin/Globulin Ratio 0.46 Urine Color (YELLOW) Urine Appearance (CLEAR) Urine pH (5.0-9.0) Ur Specific [place] (1.005-1.030) Urine Protein (NEGATIVE) Urine Glucose (UA) (NEGATIVE) Urine Ketones (NEGATIVE) Urine Occult Blood (NEGATIVE) Urine Nitrite (NEGATIVE) Urine Bilirubin (NEGATIVE) Urine Urobilinogen (0.2-1.0) mg/dL Ur Leukocyte Esterase (NEGATIVE) U Hyaline Cast (Auto) Urine RBC /HPF Urine WBC (0-5/HPF) /HPF Ur Epithelial Cells (NOT SEEN) /HPF Urine Bacteria (0-FEW/HPF) /HPF Urine Opiates Screen (NEGATIVE) Ur Oxycodone Screen (NEGATIVE) Urine Methadone Screen (NEGATIVE) Ur Barbiturates Screen (NEGATIVE) U Tricyclic Antidepress (NEGATIVE) Ur Phencyclidine Scrn (NEGATIVE) Ur Amphetamine Screen (NEGATIVE) U Methamphetamines Scrn (NEGATIVE) Urine MDMA Screen (NEGATIVE) U Benzodiazepines Scrn (NEGATIVE) Urine Cocaine Screen (NEGATIVE) U Marijuana (THC) Screen (NEGATIVE) Ethyl Alcohol 120 (0) mg/dL Blood Type Gel Antibody Screen Crossmatch 04/27/20 Range/Units 12:23 WBC (5.0-10.0) 10^3/uL RBC (4.2-5.4) 10^6/uL Hgb (12.0-16.0) g/dL Hct (37.0-47.0) % MCV (80-100) fL MCH (27.0-34.0) pg MCHC (33.0-35.0) g/dL Plt Count (150-450) 10^3/uL Neut % (Auto) (42.2-75.2) % Lymph % (Auto) (20.5-50.1) % [place] % (Auto) (2-8) % Eos % (Auto) (1.0-3.0) % Baso % (Auto) (0.0-1.0) % PT (9.0-12.0) SEC INR (0.9-1.2) Sodium (136-145) mmol/L Potassium (3.5-5.1) mmol/L Chloride (98-107) mmol/L Carbon Dioxide (21-32) mmol/L Anion Gap (7-13) mEq/L BUN (7-18) mg/dL Creatinine (0.55-1.02) mg/dL Est Cr Clr Drug Dosing mL/min Estimated GFR (MDRD) BUN/Creatinine Ratio (No establ ref range) Glucose (74-99) mg/dL Calcium (8.5-10.1) mg/dL Total Bilirubin (0.2-1.0) mg/dL AST (15-37) U/L ALT (14-59) U/L Alkaline Phosphatase (46-116) U/L Ammonia (11-32) umol/L Troponin I (0.000-0.056) ng/mL Total Protein (6.4-8.2) g/dL Albumin (3.4-5.0) g/dL Globulin Albumin/Globulin Ratio Urine Color (YELLOW) Urine Appearance (CLEAR) Urine pH (5.0-9.0) Ur Specific [place] (1.005-1.030) Urine Protein (NEGATIVE) Urine Glucose (UA) (NEGATIVE) Urine Ketones (NEGATIVE) Urine Occult Blood (NEGATIVE) Urine Nitrite (NEGATIVE) Urine Bilirubin (NEGATIVE) Urine Urobilinogen (0.2-1.0) mg/dL Ur Leukocyte Esterase (NEGATIVE) U Hyaline Cast (Auto) Urine RBC /HPF Urine WBC (0-5/HPF) /HPF Ur Epithelial Cells (NOT SEEN) /HPF Urine Bacteria (0-FEW/HPF) /HPF Urine Opiates Screen (NEGATIVE) Ur Oxycodone Screen (NEGATIVE) Urine Methadone Screen (NEGATIVE) Ur Barbiturates Screen (NEGATIVE) U Tricyclic Antidepress (NEGATIVE) Ur Phencyclidine Scrn (NEGATIVE) Ur Amphetamine Screen (NEGATIVE) U Methamphetamines Scrn (NEGATIVE) Urine MDMA Screen (NEGATIVE) U Benzodiazepines Scrn (NEGATIVE) Urine Cocaine Screen (NEGATIVE) U Marijuana (THC) Screen (NEGATIVE) Ethyl Alcohol (0) mg/dL Blood Type O POSITIVE Gel Antibody Screen Negative Crossmatch See Detail Meds: Medications Discontinued Medications Generic Name Dose Route Start Last Admin Trade Name Freq PRN Reason Stop Dose Admin Pantoprazole Sodium 80 mg 04/27/20 13:44 04/27/20 14:16 Protonix Iv IVPUSH 04/27/20 13:45 80 mg .BOLUS ONE Administration - Re-Assessments/Exams Free Text/Narrative Re-Assessment/Exam: 04/27/20 14:13 Discussed patient case with Dr. Ortega who agreed to accept the patient for transfer to [facility]. Departure - Departure Time of Disposition: 15:05 Disposition: DC/Tfer to Acute Hospital 02 Condition: Fair, Serious Clinical Impression: Heme positive stool Anemia Qualifiers: Anemia type: unspecified type Qualified Code(s): D64.9 - Anemia, unspecified Liver cirrhosis Qualifiers: Hepatic cirrhosis type: alcoholic cirrhosis Ascites presence: without ascites Qualified Code(s): K70.30 - Alcoholic cirrhosis of liver without ascites GI bleed Qualifiers: GI bleed type/associated pathology: unspecified gastrointestinal hemorrhage type Qualified Code(s): K92.2 - Gastrointestinal hemorrhage, unspecified - Discharge Information *PRESCRIPTION DRUG MONITORING PROGRAM REVIEWED*: No *COPY OF PRESCRIPTION DRUG MONITORING REPORT IN PATIENT ELIEZER: No Referrals: PCP,Unknown [Primary Care Provider] - Forms: ED Department Discharge, Interfacility Transfer T[facility]IN Sepsis Event Note (ED) - Evaluation Sepsis Screening Result: No Definite Risk - Focused Exam Vital Signs: Vital Signs Temp Temp Pulse Resp BP Pulse Ox 04/27/20 14:57 98.9 F 115 H 20 120/65 100 04/27/20 14:38 98.1 F 97 20 124/79 04/27/20 12:28 98.4 F 104 H 20 120/56 L 99 - My Orders Last 24 Hours: My Active Orders 04/27/20 11:54 EKG Documentation Completion [RC] STAT Transfuse RBC [Transfuse Red Blood Cells] [COMM] Stat 04/27/20 13:53 Verify Patient Consent Obtain [RC] ASDIRECTED - Assessment/Plan Last 24 Hours: My Active Orders 04/27/20 11:54 EKG Documentation Completion [RC] STAT Transfuse RBC [Transfuse Red Blood Cells] [COMM] Stat 04/27/20 13:53 Verify Patient Consent Obtain [RC] ASDIRECTED
[2020-04-27 12:54] LABS: ANION GAP 16.8 mEq/L (7-13); CHLORIDE,CL 101 mmol/L (98-107); SODIUM,NA 136 mmol/L (136-145)
[2020-04-27] MEDS ORDERED: Pantoprazole 40 MG Vial IVPUSH ONE (13:44)
[2020-04-27 15:00] VITALS: BP 120/65; PULSE 115
== END 2020-04-27 15:03 ==
LOC: DL.ED 12:16
DX: K92.2 Gastrointestinal hemorrhage, unspecified (principal); K70.30 Alcoholic cirrhosis of liver without ascites; D64.9 Anemia, unspecified; R19.5 Other fecal abnormalities; I10 Essential (primary) hypertension; F17.210 Nicotine dependence, cigarettes, uncomplicated; Z88.6 Allergy status to analgesic agent; Z79.899 Other long term (current) drug therapy
CPT/HCPCS: 36415; 36430; 80053; 80305; 80307; 81001; 82140; 82272; 84484; 85025; 85610; 86850; 86900; 86901; 86920; 86922; 93005; 96374; 99285; C9113; P9016; 99284

== ENCOUNTER 2021-01-03 22:37 | Emergency (ER) | payer MEDICAID ==
[2021-01-03] MEDS ORDERED: Norepinephrine 4 MG in Dextrose 5% in Water 246 ML IV SCH ×2 (23:00)
[2021-01-03] MEDS ORDERED: Pantoprazole 40 MG Vial IVPUSH ONE (23:01)
[2021-01-03] MEDS ORDERED: cefTRIAXone 1 GM in Sodium Chloride 0.9% 50 ML IV ONE (23:38)
[2021-01-03 23:58] LABS: CHLORIDE,CL 88 mmol/L (98-107); SODIUM,NA 120 mmol/L (136-145)
--- NOTE | 2021-01-04 00:03 | EDM.PDOC ---
ED HPI GENERAL MEDICAL PROBLEM - General Chief Complaint: Gastrointestinal Problem Time Seen by Provider: 01/03/21 23:10 Source of Information: Reports: Patient, RN, RN Notes Reviewed History Limitations: Reports: No Limitations - History of Present Illness INITIAL COMMENTS - FREE TEXT/NARRATIVE: Nicole is a 50 y/o female with a history of cirrhosis with ascites who presents to the ED via [facility] for complaints of melena. The patient reports she has noticed dark, tarry stool for the past five days. She does attest to a history of GI bleed with last occurring in the summer. The patient states she has been drinking alcohol heavily over the past month, but reports her last drink was seven days ago. She denies recent illness, fever, shaking chills, chest pain, palpitations, nausea, vomiting, hematemesis, abdominal pain, dysuria, or hematuria. She is a former tobacco smoker with a quit date in 2000, she denies recreational drug use. - Related Data Allergies Allergy/AdvReac Type Severity Reaction Status Date / Time ibuprofen Allergy Facial Verified 04/27/20 12:33 Swelling Home Meds: Home Meds Ferrous Gluconate 324 mg PO DAILY 04/27/20 [History] Folic Acid 1 mg PO DAILY 04/27/20 [History] Furosemide 40 mg PO DAILY 04/27/20 [History] Multivitamin [Multi-Vitamin Daily] 1 each PO DAILY 04/27/20 [History] Thiamine [Vitamin B-1] 100 mg PO DAILY 04/27/20 [History] Potassium Chloride [Klor-Con M20] 20 meq PO DAILY 01/04/21 [History] Past Medical History - Past Health History Medical/Surgical History: Denies Medical/Surgical History HEENT History: Reports: Impaired Vision Cardiovascular History: Reports: Hypertension Respiratory History: Reports: None Gastrointestinal History: Reports: Cirrhosis, GI Bleed, Jaundice Genitourinary History: Reports: None Musculoskeletal History: Reports: None Neurological History: Reports: None Psychiatric History: Reports: Addiction Endocrine/Metabolic History: Reports: Other (See Below) Other Endocrine/Metabolic History: pre diabetic Hematologic History: Reports: Anemia Immunologic History: Reports: None Oncologic (Cancer) History: Reports: Other (See Below) Other Oncologic History: States she is suppose to have a colonoscopy to R/O colon cancer but postponed till 2019 Dermatologic History: Reports: None - Infectious Disease History Infectious Disease History: Reports: MRSA - Past Surgical History Head Surgeries/Procedures: Reports: None Social & Family History - Family History Family Medical History: No Pertinent Family History - Caffeine Use Caffeine Use: Reports: None - Living Situation & Occupation Living situation: Reports: Occupation: Unemployed ED ROS GENERAL - Review of Systems Review Of Systems: Comprehensive ROS is negative, except as noted in HPI. ED EXAM, GI/ABD - Physical Exam Exam: See Below Exam Limited By: No Limitations General Appearance: Alert, Obese, Other (Disheveled; Jaundiced with gross ascites; Ill-appearing). No: Active Emesis Eyes: Bilateral: EOMI (Scleral icterus) Ears: Normal External Exam, Normal Canal, Hearing Grossly Normal, Normal TMs Nose: Normal Inspection, Normal Mucosa Throat/Mouth: Normal Voice, No Airway Compromise. No: Normal Oropharynx (Dry mucous membranes) Head: Atraumatic, Normocephalic Neck: Normal Inspection, Supple, Non-Tender, Full Range of Motion. No: Lymphadenopathy (L), Lymphadenopathy (R) Respiratory/Chest: No Respiratory Distress, Chest Non-Tender, Decreased Breath Sounds, Crackles, Accessory Muscle Use. No: Rales, Rhonchi, Wheezing, Stridor Cardiovascular: Regular Rate, Rhythm, No Edema, No Gallop, No JVD, No Murmur, No Rub. No: Normal Peripheral Pulses (Weak x4) GI/Abdominal Exam: Non-Tender, No Abnormal Bruit, No Mass, Pelvis Stable, Distended, Abnormal Bowel Sounds (Hypoactive bowel sounds), Other (Gross ascites). No: Guarding, Rigid, Rebound (Female) Exam: Deferred Rectal (Female) Exam: Normal Rectal Tone, Bloody Stool. No: Hemorrhoids, Perirectal Abscess, Rectal Fissure Back Exam: Normal Inspection, Full Range of Motion Extremities: Normal Range of Motion, Non-Tender, Normal Capillary Refill, Pedal Edema (Trace pitting, bilaterally) Neurological: Alert, Oriented, Normal Cognition, No Motor/Sensory Deficits, Slow to Respond. No: Memory Loss Remote Events, Memory Loss Recent Events Psychiatric: Normal Mood, Flat Affect Skin Exam: Dry, Intact, Cool, Jaundice. No: Ecchymosis, Erythema, Increased Warmth, Mottled, Pallor, Petechiae #1 Interpretation EKG Date: 01/03/21 Time: 23:48 Rhythm: NSR Rate (Beats/Min): 90 [place]: Normal P-Wave: Present QRS: Normal ST-T: Normal QT: Normal TN/PQ Interval: 0.15 Comparison: No Change EKG Interpretation Comments: NSR; No evidence of acute myocardial ischemia Course - Vital Signs Last Recorded V/S: Last Vital Signs Temp 98.2 F 01/04/21 00:38 Pulse 94 01/04/21 00:38 Resp 18 01/04/21 00:38 BP 101/40 L 01/04/21 00:38 Pulse Ox 98 01/03/21 22:47 - Orders/Labs/Meds Labs: Laboratory Tests 01/03/21 01/03/21 01/03/21 Range/Units 23:20 23:20 23:20 WBC 14.5 H (5.0-10.0) 10^3/uL RBC 1.40 L (4.2-5.4) 10^6/uL Hgb 4.6 L* D (12.0-16.0) g/dL Hct 14.6 L* (37.0-47.0) % MCV 104.3 H D (80-100) fL MCH 32.9 (27.0-34.0) pg MCHC 31.5 L (33.0-35.0) g/dL Plt Count 131 L D (150-450) 10^3/uL Neut % (Auto) 72.6 (42.2-75.2) % Lymph % (Auto) 10.5 L (20.5-50.1) % Mcmullen % (Auto) 15.4 H (2-8) % Eos % (Auto) 1.2 (1.0-3.0) % Baso % (Auto) 0.3 (0.0-1.0) % Add Manual Diff Yes Neutrophils % (Manual) 72 (42-75) % Band Neutrophils % 15 % Lymphocytes % (Manual) 11 L (20-50) % Atypical Lymphs % 0 % Monocytes % (Manual) 1 L (2-8) % Metamyelocytes % 1 Hypochromasia 2+ moderate Poikilocytosis 2+ moderate Anisocytosis 2+ moderate Sodium 120 L D (136-145) mmol/L Potassium 4.0 (3.5-5.1) mmol/L Chloride 88 L D (98-107) mmol/L Carbon Dioxide 18 L (21-32) mmol/L Anion Gap 18.0 H (7-13) mEq/L BUN 44 H D (7-18) mg/dL Creatinine 2.15 H (0.55-1.02) mg/dL Est Cr Clr Drug Dosing 30.44 mL/min Estimated GFR (MDRD) 24 BUN/Creatinine Ratio 20.5 (No establ ref range) Glucose 85 (70-99) mg/dL Lactic Acid 2.4 H* (0.4-2.0) mmol/L Calcium 7.5 L (8.5-10.1) mg/dL Total Bilirubin 16.6 H (0.2-1.0) mg/dL AST 80 H (15-37) U/L ALT 37 (14-59) U/L Alkaline Phosphatase 188 H (46-116) U/L Ammonia (11-32) umol/L Troponin I < 0.017 (0.000-0.056) ng/mL C-Reactive Protein 1.7 H (0.0-0.9) mg/dL B-Natriuretic Peptide (0-100) pg/ml Total Protein 4.8 L (6.4-8.2) g/dL Albumin 1.3 L (3.4-5.0) g/dL Globulin 3.5 Albumin/Globulin Ratio 0.37 Ethyl Alcohol < 3 (0) mg/dL SARS-CoV-2 RNA (LAURA) (NEGATIVE) Blood Type Gel Antibody Screen Crossmatch 01/03/21 01/03/21 01/03/21 Range/Units 23:20 23:20 23:20 WBC (5.0-10.0) 10^3/uL RBC (4.2-5.4) 10^6/uL Hgb (12.0-16.0) g/dL Hct (37.0-47.0) % MCV (80-100) fL MCH (27.0-34.0) pg MCHC (33.0-35.0) g/dL Plt Count (150-450) 10^3/uL Neut % (Auto) (42.2-75.2) % Lymph % (Auto) (20.5-50.1) % Mcmullen % (Auto) (2-8) % Eos % (Auto) (1.0-3.0) % Baso % (Auto) (0.0-1.0) % Add Manual Diff Neutrophils % (Manual) (42-75) % Band Neutrophils % % Lymphocytes % (Manual) (20-50) % Atypical Lymphs % % Monocytes % (Manual) (2-8) % Metamyelocytes % Hypochromasia Poikilocytosis Anisocytosis Sodium (136-145) mmol/L Potassium (3.5-5.1) mmol/L Chloride (98-107) mmol/L Carbon Dioxide (21-32) mmol/L Anion Gap (7-13) mEq/L BUN (7-18) mg/dL Creatinine (0.55-1.02) mg/dL Est Cr Clr Drug Dosing mL/min Estimated GFR (MDRD) BUN/Creatinine Ratio (No establ ref range) Glucose (70-99) mg/dL Lactic Acid (0.4-2.0) mmol/L Calcium (8.5-10.1) mg/dL Total Bilirubin (0.2-1.0) mg/dL AST (15-37) U/L ALT (14-59) U/L Alkaline Phosphatase (46-116) U/L Ammonia 104 H (11-32) umol/L Troponin I (0.000-0.056) ng/mL C-Reactive Protein (0.0-0.9) mg/dL B-Natriuretic Peptide 121 H (0-100) pg/ml Total Protein (6.4-8.2) g/dL Albumin (3.4-5.0) g/dL Globulin Albumin/Globulin Ratio Ethyl Alcohol (0) mg/dL SARS-CoV-2 RNA (LAURA) (NEGATIVE) Blood Type O POSITIVE Gel Antibody Screen Negative Crossmatch See Detail 01/03/21 Range/Units 23:36 WBC (5.0-10.0) 10^3/uL RBC (4.2-5.4) 10^6/uL Hgb (12.0-16.0) g/dL Hct (37.0-47.0) % MCV (80-100) fL MCH (27.0-34.0) pg MCHC (33.0-35.0) g/dL Plt Count (150-450) 10^3/uL Neut % (Auto) (42.2-75.2) % Lymph % (Auto) (20.5-50.1) % [place]mullen % (Auto) (2-8) % Eos % (Auto) (1.0-3.0) % Baso % (Auto) (0.0-1.0) % Add Manual Diff Neutrophils % (Manual) (42-75) % Band Neutrophils % % Lymphocytes % (Manual) (20-50) % Atypical Lymphs % % Monocytes % (Manual) (2-8) % Metamyelocytes % Hypochromasia Poikilocytosis Anisocytosis Sodium (136-145) mmol/L Potassium (3.5-5.1) mmol/L Chloride (98-107) mmol/L Carbon Dioxide (21-32) mmol/L Anion Gap (7-13) mEq/L BUN (7-18) mg/dL Creatinine (0.55-1.02) mg/dL Est Cr Clr Drug Dosing mL/min Estimated GFR (MDRD) BUN/Creatinine Ratio (No establ ref range) Glucose (70-99) mg/dL Lactic Acid (0.4-2.0) mmol/L Calcium (8.5-10.1) mg/dL Total Bilirubin (0.2-1.0) mg/dL AST (15-37) U/L ALT (14-59) U/L Alkaline Phosphatase (46-116) U/L Ammonia (11-32) umol/L Troponin I (0.000-0.056) ng/mL C-Reactive Protein (0.0-0.9) mg/dL B-Natriuretic Peptide (0-100) pg/ml Total Protein (6.4-8.2) g/dL Albumin (3.4-5.0) g/dL Globulin Albumin/Globulin Ratio Ethyl Alcohol (0) mg/dL SARS-CoV-2 RNA (LAURA) Negative (NEGATIVE) Blood Type Gel Antibody Screen Crossmatch Meds: Medications Discontinued Medications Generic Name Dose Route Start Last Admin Trade Name Freq PRN Reason Stop Dose Admin Norepinephrine Bitartrate 4 mg 250 mls @ 7.5 mls/hr 01/03/21 23:00 01/04/21 00:32 / Dextrose/Water IV 12 mcg/min TITRATE JACK 45 mls/hr Titration Protocol 2 MCG/MIN Vasopressin 100 units/ Sodium 100 mls @ 12 mls/hr 01/03/21 23:30 Chloride IV TITRATE JACK Protocol 0.2 UNITS/MIN Ceftriaxone Sodium 1 gm/ 50 mls @ 100 mls/hr 01/03/21 23:38 01/04/21 00:32 Sodium Chloride IV 01/04/21 00:07 100 mls/hr ONETIME ONE Administration Octreotide Acetate 100 mcg/ 100 mls @ 50 mls/hr 01/04/21 01:00 01/04/21 01:00 Sodium Chloride IV 50 mls/hr Q10H JACK Administration Pantoprazole Sodium 40 mg 01/03/21 23:01 01/03/21 23:32 Pantoprazole 40 Mg Vial IVPUSH 01/03/21 23:02 40 mg ONETIME ONE Administration - Re-Assessments/Exams Free Text/Narrative Re-Assessment/Exam: 01/04/21 NS 1L bolus wide open continued. Levophed gtt initiated. Consent obtained for transfusion. [employer] called as ED staff having difficulty obtaining peripheral access. 2unit PRBCs, Octreotide, Ancef, and continued IVF ordered; IV access pending. Case discussed with Dr. Barbour who kindly agreed to accept patient for direct admission to the ICU. Discussed difficulty obtaining IV access as well as triage for IV medications. Will call with update once [facility] arrives and patient is ready to transfer. Findings of examination and lab work reviewed with patient, as well as need for transfer given critical Hgb in the presence of a GI bleed. Patient verbalized understanding and agreement with the plan of care. Departure - Departure Time of Disposition: 00:52 Disposition: DC/Tfer to Acute Hospital 02 Condition: Fair Clinical Impression: Chronic alcohol abuse, Ascites due to alcoholic cirrhosis, Low hemoglobin, Hyponatremia, Acute kidney injury, Total bilirubin, elevated GI bleed Qualifiers: GI bleed type/associated pathology: unspecified gastrointestinal hemorrhage type Qualified Code(s): K92.2 - Gastrointestinal hemorrhage, unspecified Alcoholic cirrhosis of liver Qualifiers: Ascites presence: unspecified Qualified Code(s): K70.30 - Alcoholic cirrhosis of liver without ascites - Discharge Information Referrals: PCP,None [Primary Care Provider] - Forms: ED Department Discharge, Interfacility Transfer [facility]
[2021-01-04 00:45] VITALS: BP 101/40; PULSE 94
[2021-01-04] MEDS ORDERED: Octreotide 100 MCG in Sodium Chloride 0.9% 99 ML IV SCH (01:00)
== END 2021-01-04 01:10 ==
LOC: DL.ED 22:37
DX: K70.30 Alcoholic cirrhosis of liver without ascites (principal); K92.2 Gastrointestinal hemorrhage, unspecified; F10.10 Alcohol abuse, uncomplicated; E87.1 Hypo-osmolality and hyponatremia; N17.9 Acute kidney failure, unspecified; E80.7 Disorder of bilirubin metabolism, unspecified; D64.9 Anemia, unspecified; I10 Essential (primary) hypertension; Z20.822 Contact with and (suspected) exposure to COVID-19; Z88.8 Allergy status to other drugs, medicaments and biological substances
CPT/HCPCS: 36415; 36430; 80053; 80307; 82140; 83605; 83880; 84484; 85025; 86140; 86850; 86900; 86901; 86920; 86922; 87635; 93005; 96365; 96366; 96368; 96375; 99285; C9113; J0696; J2354; J7060; P9016; U0002